=== PATIENT | female | born 1980 | race African-American/Black ===

== ENCOUNTER 2023-10-31 09:47 | Emergency (ER) | payer BC, OTHER ==
[2023-10-31 09:54] VITALS: BP 142/95; PULSE 88; RESP 18; TEMP 98.2; BMI 30.1
[2023-10-31] MEDS ORDERED: ACETAMINOPHEN 500 MG TABLET (FP) ONE (10:58)
[2023-10-31] MEDS: ACETAMINOPHEN 500 MG TABLET (FP) PO ONE (11:02)
== END 2023-10-31 11:25 | disposition short-term general hospital (02) ==
LOC: JERFT 09:47
DX: S62.633A Displaced fracture of distal phalanx of left middle finger, initial encounter for closed fracture (principal); W23.0XXA Caught, crushed, jammed, or pinched between moving objects, initial encounter
CPT/HCPCS: 73130-TC-LT-FY; 99285-25